=== PATIENT | male | born 1935 | race Caucasian/White ===

== ENCOUNTER → 2017-12-23 | Outpatient (CLI) | payer MEDICARE ==
[~2017-12-23] MED LIST: ASPIRIN PO; CLOPIDOGREL75 MG PO; FISH OIL500 M1 PO; FLAX SEED OIL1000 MG PO; ISOSORBIDE MONO30 MG PO; LISINOPRIL10 MG PO; MULTI-VITAMIN1 EACH PO; NITROGLYCERIN0.4 MG SL; SIMVASTATIN20 MG PO; SUPER B COMPLE1 EACH PO; TRAZODONE HCL50 MG PO
--- NOTE | 2017-12-23 13:59 | Diagnostic Imaging Report ---
Exam: Pelvis one view and sacrum 2 views History: Implant Comparison: None. Findings: No acute fracture. Lower lumbar spondylosis. A left pelvic implant, sacral nerve stimulator. Intact lead with distal aspect left of midline pelvis. Impression: No acute osseous abnormality Signed by: Dr. Maikel Pierce M.D. on 12/23/2017 1:55 PM
== END ==
LOC: RAD 12:35
PROVIDERS: ATTEND Urology
DX: N32.0 Bladder-neck obstruction (principal); N32.81 Overactive bladder; R35.0 Frequency of micturition
CPT/HCPCS: 72170; 72220